=== PATIENT | male | born 1950 | race Caucasian/White ===

== ENCOUNTER → 2020-01-31 | Outpatient (CLI) | payer MEDICARE, OTHER ==
[~2020-01-31] MED LIST: ACHYD1T PO; ALBU8.5H2 IH; ASP81TEC PO; CIPR500T78 PO; CLOP75TA28 PO; CYCL10TA45 PO; DULO60CA58 PO; FURO40TA4 PO; HYDROCOD APAP PO; HYOS0.1216 PO; LOSA1TAB23 PO; MTL2.5T PO; MULT-974 PO; NITR0.4T42 SL; PHEN200T27 PO; POTA20TA15 PO; ROSU10TA12 PO; SILD100T PO
[2020-01-31 17:28] LABS: CALCIUM 9.3 MG/DL (8.5-10.1); CREATININE SERUM 1.9 MG/DL (0.60-1.30); POTASSIUM 3.6 MMOL/L (3.6-5.0)
== END ==
LOC: LAB FS 16:20
PROVIDERS: ATTEND Family Medicine
DX: I50.33 Acute on chronic diastolic (congestive) heart failure (principal)
CPT/HCPCS: 36415; 80048

== ENCOUNTER → 2020-02-11 | Outpatient (CLI) | payer MEDICARE, OTHER ==
[2020-02-11 20:19] LABS: POTASSIUM 3.2 MMOL/L (3.6-5.0)
[2020-02-11 20:20] LABS: CALCIUM 9.2 MG/DL (8.5-10.1); CREATININE SERUM 1.8 MG/DL (0.60-1.30)
== END ==
LOC: LAB FS 19:33
PROVIDERS: ATTEND Nurse Practitioner
DX: I13.0 Hypertensive heart and chronic kidney disease with heart failure and stage 1 through stage 4 chronic kidney disease, or unspecified chronic kidney disease (principal); I50.33 Acute on chronic diastolic (congestive) heart failure; N18.9 Chronic kidney disease, unspecified
CPT/HCPCS: 36415; 80048; 83880

== ENCOUNTER → 2020-02-18 | Outpatient (CLI) | payer MEDICARE, OTHER ==
[2020-02-18 19:42] LABS: POTASSIUM 3.6 MMOL/L (3.6-5.0)
[2020-02-18 19:43] LABS: CREATININE SERUM 1.97 MG/DL (0.60-1.30)
== END ==
LOC: LAB FS 18:53
PROVIDERS: ATTEND Family Medicine
DX: I13.0 Hypertensive heart and chronic kidney disease with heart failure and stage 1 through stage 4 chronic kidney disease, or unspecified chronic kidney disease (principal); I50.33 Acute on chronic diastolic (congestive) heart failure; N18.3 Chronic kidney disease, stage 3 (moderate)
CPT/HCPCS: 36415; 80048